=== PATIENT | female | born 1990 | race Caucasian/White ===

== ENCOUNTER 2021-12-13 16:20 | Emergency (ER) | payer OTHER ==
[~2021-12-13] VITALS: Ht 175.3 cm; Wt 120.0 kg
[~2021-12-13 16:20] MED LIST: IBUP-2028 PO; T3 PO
[2021-12-13] MEDS ORDERED: IBUPROFEN 400MG TABLET PO ONE (17:15)
[2021-12-13] MEDS ORDERED: ACETAMINOPHEN 325MG TABLET PO ONE (17:15)
[2021-12-13] MEDS ORDERED: TOPUD PO (19:10)
[2021-12-13] MEDS ORDERED: IBUP-2028 MT (19:10)
[2021-12-13 19:30] VITALS: BP 113/78
== END 2021-12-13 19:30 | disposition home or self-care (01) ==
LOC: ER 16:20
DX: M79.671 Pain in right foot (principal); Z79.899 Other long term (current) drug therapy
CPT/HCPCS: 73630; 99283